=== PATIENT | male | born 2000 | race Asian ===

== ENCOUNTER 2019-02-07 21:31 | Emergency (ER) | payer BC, OTHER ==
[2019-02-07] MEDS ORDERED: Lidocaine 1% MPF ** 5 ML VIAL INJ ONE (22:39)
--- NOTE | 2019-02-07 22:57 | ED ---
Laceration/Wound HPI - HPI Summary HPI Summary: 18-year-old male presents with right pinky laceration today. He states he cut it while lifting. The area continues to bleed. No numbness or tingling. He has full range of motion of fingers. He is right-handed. Is a student. tetanus up-to-date. - History of Current Complaint Stated Complaint: RT PINKY LAC PER PT Time Seen by Provider: 02/07/19 22:39 Pain Intensity: 7 - Allergy/Home Medications Allergies/Adverse Reactions: Allergies Allergy/AdvReac Type Severity Reaction Status Date / Time No Known Allergies Allergy Verified 02/07/19 21:50 PMH/Surg Hx/FS Hx/Imm Hx Endocrine/Hematology History: Denies: Hx Anticoagulant Therapy Respiratory History: Denies: Hx Asthma - Immunization History Immunizations Up to Date: Yes Infectious Disease History: No Infectious Disease History: Denies: Traveled Outside the [place] in Last 30 Days - Social History Alcohol Use: Occasionally Substance Use Type: Reports: None Smoking Status (MU): Never Smoked Tobacco Review of Systems Negative: Fever Negative: Chest Pain Negative: Shortness Of Breath Positive: Other - right hand laceration All Other Systems Reviewed And Are Negative: Yes Physical Exam Triage Information Reviewed: Yes Vital Signs On Initial Exam: Initial Vitals Temp Pulse Resp BP Pulse Ox 98.3 F 70 16 123/80 98 02/07/19 21:45 02/07/19 21:45 02/07/19 21:45 02/07/19 21:45 02/07/19 21:45 Vital Signs Reviewed: Yes Appearance: Positive: Well-Appearing Skin: Positive: Warm, Dry, Other - 4cm laceration of dorsum of right MCP of little finger Head/Face: Positive: Normal Head/Face Inspection Eyes: Positive: Normal, Conjunctiva Clear ENT: Positive: Pharynx normal Respiratory/Lung Sounds: Positive: Clear to Auscultation, Breath Sounds Present Cardiovascular: Positive: Normal, RRR Musculoskeletal: Positive: Strength/ROM Intact - right middle finger, Other - capillary refill<2 secs Neurological: Positive: Normal Psychiatric: Positive: Normal Procedures - Laceration/Wound Repair 1 Location: Other - right hand Description: Linear Anesthesia: Local, 1.0% Length, Depth and Shape: 4cm by 1/2cm Irrigated w/ Saline (ccs): 500 Closure: Single Layer Suture Type: Prolene Number of Sutures: 5 Sterile Dressing Applied?: No - twin taped with telfa and coband Diagnostics - Vital Signs Vital Signs Temp Pulse Resp BP Pulse Ox 02/07/19 21:45 98.3 F 70 16 123/80 98 - Laboratory Lab Statement: Any lab studies that have been ordered have been reviewed, and results considered in the medical decision making process. Laceration Repair Course/Dx - Course Course Of Treatment: 18-year-old male presents with right pinky laceration today. He states he cut it while lifting. The area continues to bleed. No numbness or tingling. He has full range of motion of fingers. He is right- handed. Is a student. tetanus up-to-date. On exam has 4 cm by half centimeter laceration over MCP of right hand. Clean area and placed 5 sutures. twin taped fingers. told keep clean dry. Patient understands agrees with plan. - Differential Dx Differental Diagnoses: Abrasion, Avulsion, Laceration - Clinical Impression Provider Diagnoses: Laceration of right little finger Discharge ED - Sign-Out/Discharge Documenting (check all that apply): Patient Departure Patient Received Moderate/Deep Sedation with Procedure: No - Discharge Plan Condition: Good Disposition: HOME Patient Education Materials: Care For Your Stitches (ED) Referrals: No Primary Care Phys,NOPCP [Primary Care Provider] - Additional Instructions: Take Tylenol or ibuprofen for pain every 6 hours as needed Keep area clean and dry for 24 hours Return to ED or primary in 8-10 days to have sutures removed Return to ED if develop signs of infection such as fever, spreading redness, or p - Billing Disposition and Condition Condition: GOOD Disposition: Home
[2019-02-07 23:26] VITALS: BP 143/87
== END 2019-02-07 23:25 | disposition home or self-care (01) ==
LOC: ED 21:31
DX: S61.216A Laceration without foreign body of right little finger without damage to nail, initial encounter (principal); W45.8XXA Other foreign body or object entering through skin, initial encounter; Y92.9 Unspecified place or not applicable
CPT/HCPCS: 12002; 99282